=== PATIENT | male | born 1970 | race Caucasian/White ===

== ENCOUNTER → 2016-08-07 | Outpatient (CLI) | payer OTHER ==
--- NOTE | ~2016-08-07 | MR104 ---
[facility] Service of [facility] RADIOLOGY TEXT RESULTS PATIENT: CHINO LUO LOCATION: [facility] : 70 UNIT #: [id number] AGE: [address]: Charles Nichols MD SEX: M ORDER DR: [id number] [address] [address] [id number] MR#: [id number] Acc #: [id number] NAME: CHINO LUO : 1970 SEX: M STUDY DATE/TIME: 08/07/2016 15:31 UNIT: [facility] ROOM: STUDY DESCRIPTION: MR Knee Wo Contrast Rt Attending Physician: Charles Nichols M.D. Referring Physician: Charles Nichols M.D. Ordering Physician: Charles Nichols M.D. Primary Care Physician: Charles Nichols M.D. MRI CENTER REPORT This report is preliminary unless electronic signature is present. EXAM MRI of the right knee without contrast HISTORY 45-year-old male complains of increasing knee pain over the last 3 weeks. Remembers knee popped 3 months ago. But no specific injury. FINDINGS Multiplanar multiecho imaging was performed of the right knee utilizing a high field magnet dedicated protocol. Examination demonstrates increased T2 marrow signal about the knee most likely representing a red marrow hyperplasia and related to body habitus. There is a small knee effusion. There is advanced cartilage loss and developing arthrosis within the lateral compartment with extensive full-thickness cartilage loss lateral femoral condyle and lateral tibial plateau. Trace amount of subchondral edema. The lateral meniscus demonstrates myxoid degeneration and a suspected horizontal cleavage tear anterior body segment lateral meniscus. The medial meniscus demonstrates mild myxoid degeneration. Mild chondromalacia and diffuse cartilage thinning in the medial compartment. In the patellofemoral compartment there is a moderate-grade chondromalacia median ridge and medial patellar facet. Trochlear cartilage unremarkable. Anterior and posterior cruciate ligaments appear intact. The collateral ligaments and extensor mechanism unremarkable. A small amount of fluid distends the GS bursa. IMPRESSION 1. 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 Additional moderate-grade chondromalacia also noted along the medial patellar facet and median ridge of the patella. 2. 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 [facility]. [facility] A Service of [facility] RADIOLOGY TEXT RESULTS PATIENT: CHINO LUO LOCATION: [facility] : 70 UNIT #: [id number] AGE: [address]: Charles Nichols MD SEX: M ORDER DR: Dictated by... Kaci Simmons M.D. THIS IS AN ELECTRONICALLY VERIFIED REPORT Kaci Simmons M.D. at 08/08/2016 3:42 PM LORI/shannon TD: 08/08/2016 12:34 JOB #: [id number] MRI [facility]ENTER REPORT Page 1 of 1
== END | disposition home or self-care (01) ==
LOC: SMRI 13:45
DX: M25.561 Pain in right knee (principal); M17.11 Unilateral primary osteoarthritis, right knee; M94.261 Chondromalacia, right knee; M23.341 Other meniscus derangements, anterior horn of lateral meniscus, right knee
CPT/HCPCS: 73721